=== PATIENT | female | born 1975 | race Caucasian/White ===

== ENCOUNTER 2024-06-19 09:54 | Emergency (ER) | payer OTHER ==
[~2024-06-19] VITALS: Ht 160 cm; Wt 102.1 kg
== END 2024-06-19 13:35 | disposition home or self-care (01) ==
LOC: ER 09:54
DX: S09.90XA Unspecified injury of head, initial encounter (principal); S39.92XA Unspecified injury of lower back, initial encounter; W18.30XA Fall on same level, unspecified, initial encounter
CPT/HCPCS: 70450; 72100

== ENCOUNTER 2024-10-01 09:11 | Observation (INO) | payer OTHER ==
[~2024-10-01] VITALS: Ht 162.6 cm; Wt 94.5 kg
[2024-10-01 09:57] LABS: BASOPHILS ABSOLUTE AUTO 0.09 K/mm3 (0.00-0.23); BASOPHILS PERCENT AUTO 1 % (0-2); EOSINOPHILS ABSOLUTE AUTO 0.47 K/mm3 (0.00-0.68); EOSINOPHILS PERCENT AUTO 4 % (0-6); Hematocrit 22.4 % (33.0-51.0); Hemoglobin 6.0 g/dL (11.5-16.0); IMMATURE GRAN ABSOLUTE AUTO 0.04 K/mm3 (0.00-0.10); IMMATURE GRAN PERCENT AUTO 0 % (0-1); LYMPHOCYTES ABSOLUTE AUTO 2.22 K/mm3 (0.84-5.20); LYMPHOCYTES PERCENT AUTO 20 % (21-46); MONOCYTES ABSOLUTE AUTO 0.89 K/mm3 (0.16-1.47); MONOCYTES PERCENT AUTO 8 % (4-13); Mean Corpuscular HGB Conc 26.8 g/dL (31.5-36.5); Mean Corpuscular Volume 62 fL (80-100); NEUTROPHILS ABSOLUTE AUTO 7.37 K/mm3 (1.96-9.15); NEUTROPHILS PERCENT AUTO 67 % (41-73); NRBC ABSOLUTE 0.00 K/mm3 (0.00-0.02); NRBC Auto 0.0 /100 WBC (0.0-0.2); Platelet Count 545 K/mm3 (150-400); RDW Coefficient Variation 19.2 % (11.7-14.2); RDW Standard Deviation 41.6 fL (35.1-46.3)
[2024-10-01 10:17] LABS: Alanine Aminotransfer (ALT/SGP 16 U/L (12-78); Albumin, Blood 3.0 g/dL (3.4-5.0); Albumin/Globulin Ratio 0.9 (0.8-1.8); Anion Gap 5 mmol/L (3-11); Aspartate Aminotrans (AST/SGOT 12 U/L (12-37); Bilirubin, Total 0.3 mg/dL (0.1-1.0); Blood Urea Nitrogen 16 mg/dL (8-24); CO2, Blood 29 mmol/L (21-32); Calcium, Blood 8.7 mg/dL (8.5-10.1); Chloride, Blood 106 mmol/L (98-108); Creatinine, Blood 0.63 mg/dL (0.40-1.00); Ethanol (Alcohol), Blood, Med <3 mg/dL; Globulin, Blood 3.3 g/dL (2.2-4.0); Glucose, Blood 126 mg/dL (70-99); Potassium, Blood 4.2 mmol/L (3.5-5.5); Sodium, Blood 136 mmol/L (136-145); Total Protein, Blood 6.3 g/dL (6.4-8.2)
[2024-10-01] MEDS ORDERED: NS 1,000 ML IV ONE (12:23)
[2024-10-01 12:50] LABS: U Amphetamine Screen Not Detected; U Barbituate Screen Not Detected; U Benzodiazapine Screen Not Detected; U Buprenorphine Screen Not Detected; U Cannabinoids Screen DETECTED; U Cocaine Screen Not Detected; U Methadone Screen Not Detected; U Methamphetamine Screen Not Detected; U Opiates Screen Not Detected; U Oxycodone Screen Not Detected; U Phencyclidine Screen Not Detected
[2024-10-01] MEDS ORDERED: Ipratropium/Albuterol SulF 2.5-0.5MG/3 ML Amp INH PRN (14:20)
[2024-10-01] MEDS ORDERED: ALBU90OI INH (15:13)
[2024-10-01] MEDS ORDERED: MIDOL COMPLETE1 EAC2 PO (15:15)
[2024-10-01 15:48] VITALS: BP 115/59
[2024-10-01 16:04] LABS: IMMATURE RETIC FRACTION 36.4 % (2.3-16.0); RETIC HGB EQUIVALENT 15.7 pg (28.20-36.60); RETICULOCYTE ABSOLUTE 0.0673 M/mm3 (0.0200-0.1100); RETICULOCYTE COUNT PERCENT 1.61 % (0.50-2.50)
[2024-10-01 16:11] LABS: Ferritin, Serum 2.0 ng/mL (8-252); Thyroid Stimulating Hormone 2.11 uIU/mL (0.360-4.800); Total Iron Binding Capacity 424.0 ug/dL (250-450)
[2024-10-01 19:25] VITALS: BP 114/61
[2024-10-02 04:04] VITALS: BP 95/55
--- NOTE | 2024-10-02 05:12 | NUR ---
PT HAD C/O OF UTERINE LOWER ABD CRAMPING W/O BLEEDING AND 6/10 PAIN. COMIC BOOK DESIGNER RESIDENT NOTIFIED AND ORDER FOR TYLENOL 650 MG PO X 1 GIVEN.
--- NOTE | 2024-10-02 05:33 | NUR ---
PT HAD C/O OF UTERINE LOWER ABD CRAMPING WITH 2/10 PAIN, NO BLEEDING REPORTED BY PT. FINANCIAL OFFICER RESIDENT NOTIFIED AND TYLENOL ORDERED FOR RELIEF.
[2024-10-02 06:00] LABS: BASOPHILS ABSOLUTE AUTO 0.09 K/mm3 (0.00-0.23); BASOPHILS PERCENT AUTO 1 % (0-2); EOSINOPHILS ABSOLUTE AUTO 0.45 K/mm3 (0.00-0.68); EOSINOPHILS PERCENT AUTO 5 % (0-6); Hematocrit 26.0 % (33.0-51.0); Hemoglobin 7.2 g/dL (11.5-16.0); IMMATURE GRAN ABSOLUTE AUTO 0.03 K/mm3 (0.00-0.10); IMMATURE GRAN PERCENT AUTO 0 % (0-1); LYMPHOCYTES ABSOLUTE AUTO 2.62 K/mm3 (0.84-5.20); LYMPHOCYTES PERCENT AUTO 26 % (21-46); MONOCYTES ABSOLUTE AUTO 1.00 K/mm3 (0.16-1.47); MONOCYTES PERCENT AUTO 10 % (4-13); Mean Corpuscular HGB Conc 27.7 g/dL (31.5-36.5); Mean Corpuscular Volume 64 fL (80-100); NEUTROPHILS ABSOLUTE AUTO 5.91 K/mm3 (1.96-9.15); NEUTROPHILS PERCENT AUTO 59 % (41-73); NRBC ABSOLUTE 0.00 K/mm3 (0.00-0.02); NRBC Auto 0.0 /100 WBC (0.0-0.2); Platelet Count 489 K/mm3 (150-400); RDW Coefficient Variation 21.8 % (11.7-14.2); RDW Standard Deviation 47.0 fL (35.1-46.3)
--- NOTE | 2024-10-02 06:17 | NUR ---
SHIFT SUMMARY NOC PT A/O X 4. PLEASANT AND COOPERATIVE WITH CARE. VSS. PT RECEIVED 1 UNIT OF PRBC IN ED YESTERDAY FOR HGB 6.0 AND HGB 7.2 THIS AM. PT SLEPT FOR MAJORITY OF SHIFT, BUT HAD NO S/S OF CVA THAT WERE PRESENTED WHEN COMING IN TO ED. PELVIC/TRANSVAG US RESULTS PENDING. TOWARDS END OF SHIFT PT HAD C/O OF 2/10 LOWER ABD/UTERINE CRAMPING PAIN W/O BLEEDING. RESIDENT NOTIFIED AND TYLENOL ORDERED AND GIVEN. PT EXPECTED TO DISCHARGE WITH FOLLOW UP MRI SCHEDULED. PT CURRENTLY RESTING WITH BED IN LOWEST POSITION, AND CALL LIGHT WITHIN REACH.
[2024-10-02 06:24] LABS: Alanine Aminotransfer (ALT/SGP 15.0 U/L (12-78); Albumin, Blood 3.1 g/dL (3.4-5.0); Albumin/Globulin Ratio 0.9 (0.8-1.8); Anion Gap 6.0 mmol/L (3-11); Aspartate Aminotrans (AST/SGOT 14.0 U/L (12-37); Bilirubin, Total 0.3 mg/dL (0.1-1.0); Blood Urea Nitrogen 13.0 mg/dL (8-24); CO2, Blood 30.0 mmol/L (21-32); Calcium, Blood 8.5 mg/dL (8.5-10.1); Chloride, Blood 105.0 mmol/L (98-108); Creatinine, Blood 0.56 mg/dL (0.40-1.00); Globulin, Blood 3.6 g/dL (2.2-4.0); Glucose, Blood 92.0 mg/dL (70-99); Potassium, Blood 4.1 mmol/L (3.5-5.5); Sodium, Blood 137.0 mmol/L (136-145); Total Protein, Blood 6.7 g/dL (6.4-8.2)
[2024-10-02] MEDS ORDERED: NS 500 ML IV SCH (07:05)
[2024-10-02 07:34] VITALS: BP 101/56
[2024-10-02 07:58] VITALS: BP 105/67
[2024-10-02 09:09] VITALS: BP 111/64
[2024-10-02 10:25] VITALS: BP 111/63
[2024-10-02 11:22] VITALS: BP 124/67
[2024-10-02 12:44] LABS: Hematocrit 26.1 % (33.0-51.0); Hemoglobin 7.4 g/dL (11.5-16.0)
--- NOTE | 2024-10-02 16:25 | NUR ---
DC-1550 PT BROUGHT DOWN IN WC IN STABLE CONDITION FOR DC WITH LPRALZIX-BV-TAB. PT LEFT WITH ALL BELONGINGS.
== END 2024-10-02 15:55 | disposition home or self-care (01) ==
LOC: ER 09:11 → MEDS 14:00
PROVIDERS: Internal Medicine; Student in an Organized Health Care Education/Training Program; ADMIT Hospitalist
DX: N93.8 Other specified abnormal uterine and vaginal bleeding (principal); D50.0 Iron deficiency anemia secondary to blood loss (chronic); J45.901 Unspecified asthma with (acute) exacerbation; N85.8 Other specified noninflammatory disorders of uterus; R55 Syncope and collapse; E66.9 Obesity, unspecified; Z68.38 Body mass index [BMI] 38.0-38.9, adult; Z87.891 Personal history of nicotine dependence; Z91.010 Allergy to peanuts; Z91.018 Allergy to other foods
CPT/HCPCS: 36415; 36430; 70450; 70496; 70498; 76830; 76856; 80053; 80320; 82272; 82607; 82728; 82746; 83540; 83550; 84443; 85014; 85018; 85025; 85045; 85730; 86850; 86900; 86901; 86923; 93005; 93010; 94762; 99285-25; A9270; G0378; J7030; J7040; P9016; Q9967

== ENCOUNTER 2024-10-25 01:15 | Day surgery (SDC) | payer OTHER ==
[~2024-10-25 01:15] MED LIST: ALBU90OI INH; MIDOL COMPLETE1 EAC2 PO; NICO21TP TOP; Sod Ferric Gluc Complx/Sucrose 125 MG in NS 100 ML IV SCH
[2024-10-25 15:10] VITALS: BP 114/61
== END 2024-10-25 16:12 | disposition home or self-care (01) ==
LOC: ATC 01:15
DX: D50.9 Iron deficiency anemia, unspecified (principal); F17.210 Nicotine dependence, cigarettes, uncomplicated; J45.909 Unspecified asthma, uncomplicated; Z79.899 Other long term (current) drug therapy; Z98.51 Tubal ligation status
CPT/HCPCS: 96365; J2916

== ENCOUNTER 2024-11-01 00:39 | Day surgery (SDC) | payer OTHER ==
[~2024-11-01 00:39] MED LIST changes: -Sod Ferric Gluc Complx/Sucrose 125 MG in NS 100 ML IV SCH
[2024-11-01] MEDS ORDERED: Sod Ferric Gluc Complx/Sucrose 125 MG in NS 100 ML IV SCH (06:00)
[2024-11-01 15:26] VITALS: BP 104/61
== END 2024-11-01 16:40 | disposition home or self-care (01) ==
LOC: ATC 00:39
DX: D50.9 Iron deficiency anemia, unspecified (principal); F17.210 Nicotine dependence, cigarettes, uncomplicated; N85.8 Other specified noninflammatory disorders of uterus; E66.9 Obesity, unspecified; Z68.37 Body mass index [BMI] 37.0-37.9, adult; Z79.899 Other long term (current) drug therapy
CPT/HCPCS: 96365; J2916

== ENCOUNTER 2024-11-09 02:44 | Day surgery (SDC) | payer OTHER ==
[~2024-11-09 02:44] MED LIST changes: +Sod Ferric Gluc Complx/Sucrose 125 MG in NS 100 ML IV SCH
[2024-11-09 11:23] VITALS: BP 95/57
[2024-11-09 12:06] VITALS: BP 101/63
--- NOTE | 2024-11-10 17:43 | NUR ---
LATE ENTRY: PT INFUSED ON 11/10/23. START TIME 1108. STOP TIME 1208.
== END 2024-11-09 12:08 | disposition home or self-care (01) ==
LOC: ATC 02:44
DX: D50.9 Iron deficiency anemia, unspecified (principal); N85.8 Other specified noninflammatory disorders of uterus; F17.210 Nicotine dependence, cigarettes, uncomplicated; E66.9 Obesity, unspecified; Z68.37 Body mass index [BMI] 37.0-37.9, adult; Z79.899 Other long term (current) drug therapy
CPT/HCPCS: 96365; J2916

== ENCOUNTER 2024-11-15 02:12 | Day surgery (SDC) | payer OTHER ==
[2024-11-15 16:01] VITALS: BP 118/71
== END 2024-11-15 17:08 | disposition home or self-care (01) ==
LOC: ATC 02:12
DX: D50.9 Iron deficiency anemia, unspecified (principal); N92.0 Excessive and frequent menstruation with regular cycle; F17.210 Nicotine dependence, cigarettes, uncomplicated; Z79.899 Other long term (current) drug therapy
CPT/HCPCS: 96365; J2916

== ENCOUNTER 2024-11-22 02:38 | Day surgery (SDC) | payer OTHER ==
[2024-11-22 16:43] VITALS: BP 102/62
[2024-11-22 16:58] LABS: BASOPHILS ABSOLUTE AUTO 0.07 K/mm3 (0.00-0.23); BASOPHILS PERCENT AUTO 1 % (0-2); EOSINOPHILS ABSOLUTE AUTO 0.47 K/mm3 (0.00-0.68); EOSINOPHILS PERCENT AUTO 5 % (0-6); Hemoglobin 10.9 g/dL (11.5-16.0); IMMATURE GRAN ABSOLUTE AUTO 0.02 K/mm3 (0.00-0.10); IMMATURE GRAN PERCENT AUTO 0 % (0-1); LYMPHOCYTES ABSOLUTE AUTO 2.71 K/mm3 (0.84-5.20); LYMPHOCYTES PERCENT AUTO 27 % (21-46); MONOCYTES ABSOLUTE AUTO 0.94 K/mm3 (0.16-1.47); MONOCYTES PERCENT AUTO 9 % (4-13); NEUTROPHILS ABSOLUTE AUTO 5.94 K/mm3 (1.96-9.15); NEUTROPHILS PERCENT AUTO 59 % (41-73); NRBC ABSOLUTE 0.00 K/mm3 (0.00-0.02); NRBC Auto 0.0 /100 WBC (0.0-0.2); Platelet Count 416 K/mm3 (150-400)
[2024-11-22 17:01] LABS: Hematocrit 35.3 % (33.0-51.0); Mean Corpuscular HGB Conc 30.9 g/dL (31.5-36.5); Mean Corpuscular Volume 82 fL (80-100)
== END 2024-11-22 17:36 | disposition home or self-care (01) ==
LOC: ATC 02:38
PROVIDERS: Family Medicine
DX: D50.9 Iron deficiency anemia, unspecified (principal); F17.210 Nicotine dependence, cigarettes, uncomplicated
CPT/HCPCS: 85025; 96365; C1751; J2916

== ENCOUNTER 2024-11-29 03:11 | Day surgery (SDC) | payer OTHER ==
[2024-11-29 16:11] VITALS: BP 111/62
== END 2024-11-29 17:10 | disposition home or self-care (01) ==
LOC: ATC 03:11
DX: D50.9 Iron deficiency anemia, unspecified (principal); N92.0 Excessive and frequent menstruation with regular cycle; N85.8 Other specified noninflammatory disorders of uterus; F17.210 Nicotine dependence, cigarettes, uncomplicated
CPT/HCPCS: 96365; J2916

== ENCOUNTER 2024-12-08 00:55 | Day surgery (SDC) | payer OTHER ==
[~2024-12-08 00:55] MED LIST changes: -Sod Ferric Gluc Complx/Sucrose 125 MG in NS 100 ML IV SCH
[2024-12-08] MEDS ORDERED: Sod Ferric Gluc Complx/Sucrose 125 MG in NS 100 ML IV SCH (01:00)
[2024-12-08 16:00] VITALS: BP 112/63
== END 2024-12-08 17:04 | disposition home or self-care (01) ==
LOC: ATC 00:55
DX: D50.9 Iron deficiency anemia, unspecified (principal); N92.0 Excessive and frequent menstruation with regular cycle; F17.210 Nicotine dependence, cigarettes, uncomplicated
CPT/HCPCS: 96365; J2916

== ENCOUNTER 2025-02-15 06:28 | Day surgery (SDC) | payer OTHER ==
[2025-02-15] VITALS (19 sets, daily range): BP systolic 90–152; BP diastolic 47–810
[~2025-02-15] VITALS: Ht 157.5 cm; Wt 101.0 kg
[~2025-02-15 06:28] MED LIST changes: +CeFAZolin Sodium 2,000 MG in NS 100 ML IV SCH
[2025-02-15] MEDS ORDERED: Bupivacaine 0.5% W/EPI 1:200000 SDV 30 ML Vial ONE (07:16)
[2025-02-15] MEDS ORDERED: Midazolam HCl 1MG / ML 2ML Vial ONE ×2 (07:20→12:47)
[2025-02-15] MEDS ORDERED: FentaNYL Citrate 50 MCG/ML 2 ML Injection ONE ×2 (07:20→11:30)
[2025-02-15] MEDS ORDERED: Rocuronium Bromide 10 MG/ML 5ML Injection IV ONE ×3 (07:21→11:18)
[2025-02-15] MEDS ORDERED: Phenylephrine HCl 100 MCG/ML-NS 10MLSYR (1MG/10ML) ONE (08:08)
[2025-02-15] MEDS ORDERED: ePHEDrine Sulfate 50 MG/ML 1ML Injection ONE (08:09)
[2025-02-15] MEDS ORDERED: Albuterol HFA200 ACT/6.7 GM INH ONE (08:19)
[2025-02-15] MEDS ORDERED: Ondansetron HCl 2 MG / ML 2ML Vial ONE (08:46)
[2025-02-15] MEDS ORDERED: Dexamethasone Sod Phos 10 MG/ML 1ML VIAL ONE (08:46)
[2025-02-15] MEDS ORDERED: Ondansetron HCl 2 MG / ML 2ML Vial IV PRN ×2 (10:05→12:10)
[2025-02-15] MEDS ORDERED: HYDROmorphone HCl/Pf 1MG SYR IV PRN ×3 (10:05→12:15)
[2025-02-15] MEDS ORDERED: Albuterol 2.5 MG/3 ML VIAL INH PRN (10:05)
[2025-02-15] MEDS ORDERED: FentaNYL Citrate 50 MCG/ML 2 ML Injection IV PRN ×2 (10:05)
[2025-02-15] MEDS ORDERED: HYDROmorphone HCl/Pf 1MG SYR ONE ×2 (11:25→12:43)
[2025-02-15] MEDS ORDERED: Sugammadex Sodium 200 MG/2ML SDV (100 MG/ML) ONE (11:25)
[2025-02-15] MEDS ORDERED: Ketorolac Tromethamine 30mg Vial ONE (11:54)
[2025-02-15] MEDS ORDERED: OxyCODONE 5 mg/Acetamin 325 mg TABLET PO PRN (12:10)
[2025-02-15] MEDS ORDERED: Naloxone HCl 0.4MG / ML 1ML Vial IV PRN (12:15)
[2025-02-15] MEDS ORDERED: FLU VACC TS2025-26(6MOS UP)/PF 45 MCG/0.5 ML SYRINGE IM SCH (12:15)
[2025-02-15] MEDS ORDERED: Ketorolac Tromethamine 30mg Vial IV PRN (12:25)
[2025-02-15] MEDS ORDERED: CeFAZolin Sodium 2,000 MG in NS 100 ML IV SCH (14:00)
--- NOTE | 2025-02-15 14:32 | NUR ---
NOTE BEDSIDE REPORT RECEIVED FROM PACU. PT TRANSFERED VIA SLIDER SHEET WITH 5 ASSIST. PT AWAKE BUT GROGGY. SHE AROUSES AT TOUCH AND VERBAL. FOLLOWS SOME DIRECTIONS. IS ABLE TO DIRECT CARE FOR COMFORT. WAS ABLE TO DRINK WATER AND SWALLOW GASZ AND PERCOCET. PT LAYING ON HER LEFT SIDE. CONT PULSE OX 96% ON 2L. VSS. LAP SITES CD&I.
[2025-02-16 03:14] VITALS: BP 136/84
--- NOTE | 2025-02-16 03:42 | NUR ---
PT AMBULATORY WITH SBA,PT WEARING BINDER,VOIDING,SCANT VAG SPOTTING WITH VOID.NO C/O NAUSEA.TOLERATING PO PAIN MED.
[2025-02-16 07:13] VITALS: BP 114/85
--- NOTE | 2025-02-16 07:39 | NUR ---
sleeping, call light in reach.
[2025-02-16 08:14] LABS: BASOPHILS ABSOLUTE AUTO 0.03 K/mm3 (0.00-0.23); BASOPHILS PERCENT AUTO 0 % (0-2); EOSINOPHILS ABSOLUTE AUTO 0.02 K/mm3 (0.00-0.68); EOSINOPHILS PERCENT AUTO 0 % (0-6); Hematocrit 35.1 % (33.0-51.0); Hemoglobin 11.1 g/dL (11.5-16.0); IMMATURE GRAN ABSOLUTE AUTO 0.08 K/mm3 (0.00-0.10); IMMATURE GRAN PERCENT AUTO 0 % (0-1); LYMPHOCYTES ABSOLUTE AUTO 2.20 K/mm3 (0.84-5.20); LYMPHOCYTES PERCENT AUTO 11 % (21-46); MONOCYTES ABSOLUTE AUTO 1.68 K/mm3 (0.16-1.47); MONOCYTES PERCENT AUTO 8 % (4-13); Mean Corpuscular HGB Conc 31.6 g/dL (31.5-36.5); Mean Corpuscular Volume 86 fL (80-100); NEUTROPHILS ABSOLUTE AUTO 16.40 K/mm3 (1.96-9.15); NEUTROPHILS PERCENT AUTO 80 % (41-73); NRBC ABSOLUTE 0.00 K/mm3 (0.00-0.02); NRBC Auto 0.0 /100 WBC (0.0-0.2); Platelet Count 461 K/mm3 (150-400); RDW Coefficient Variation 14.7 % (11.7-14.2); RDW Standard Deviation 46.8 fL (35.1-46.3)
[2025-02-16] MEDS ORDERED: Percocet 5-3251 EACH PO (14:43)
[2025-02-16] MEDS ORDERED: SIME80CH PO (14:44)
[2025-02-16] MEDS ORDERED: PROM25 PO (14:44)
--- NOTE | 2025-02-16 15:28 | NUR ---
PT SITTING UP ON EDGE OF BED, CALLING FOR RIDE TO [facility] HOME.
--- NOTE | 2025-02-16 16:19 | NUR ---
DISCHARGE PT EDUCATED ON AND RECEIVED PRINTED DISCHARGE INSTRUCTIONS AND VERBALIZED AN UNDERSTANDING. PT REPORTS FILLING HER RX PRIOR TO SURGERY. IV DC'D. PT GATHERED ALL PERSONAL BELONGINGS AND W/C OUT TO VEHICLE. PT FAMILY TO DRIVE HER HOME.
== END 2025-02-16 16:21 | disposition home or self-care (01) ==
LOC: ORSCMMR 06:28 → ORD 07:30 → SURS 13:47 → ORSCMMR 02-16 16:21
PROVIDERS: Obstetrics & Gynecology
PROC: 0UT7FZZ Resection of Bilateral Fallopian Tubes, Via Natural or Artificial Opening With Percutaneous Endoscopic Assistance (ICD-10-PCS; principal; 2025-02-15 07:30)
PROC: 0UT9FZZ Resection of Uterus, Via Natural or Artificial Opening With Percutaneous Endoscopic Assistance (ICD-10-PCS; principal; 2025-02-15 07:30)
DX: D25.9 Leiomyoma of uterus, unspecified (principal); N92.1 Excessive and frequent menstruation with irregular cycle; D50.0 Iron deficiency anemia secondary to blood loss (chronic); N73.6 Female pelvic peritoneal adhesions (postinfective); N83.8 Other noninflammatory disorders of ovary, fallopian tube and broad ligament; N94.6 Dysmenorrhea, unspecified; N94.10 Unspecified dyspareunia; E66.9 Obesity, unspecified; Z68.39 Body mass index [BMI] 39.0-39.9, adult
CPT/HCPCS: 36415; 85025; 86850; 86900; 86901; 88307; 88341; 88342; A9270; J0690; J1100; J1171; J1885; J2250; J2371; J2405; J2704; J3010; J7120